=== PATIENT | female | born 1960 | race African-American/Black ===

== ENCOUNTER 2017-01-23 06:00 | Inpatient (IN) | payer OTHER ==
--- NOTE | ~2017-01-23 | HP ---
Unit #: [id number] #: [id number] Patient: JONN ROJAS [id number] [address] [facility]. [place], [place] [address] [id number] Maximo MR#: [id number] NAME: JONN ROJAS ROOM: 320 Age: 56 Sex: F Admission Date: 01/23/2017 : 1960 Attending Physician: Seble Gomez M.D. HISTORY AND PHYSICAL CHIEF COMPLAINT Progressive confusion. HISTORY OF PRESENT ILLNESS This 56-year-old female with seizure disorder from transferred from [facility] emergency department for progressive confusion. The patient, herself, although conversing, is confused. She is unsure why she was sent to this hospital and denies any current symptoms. I called her who tells me the patient has been experiencing progressive confusion over the past one to two months. She does not believe that she lives in her own home, does not believe that she is to her . She wanders up and down the road. She was recently admitted to [facility] for confusion but I have no old records. Her took her back yesterday and she was diagnosed with a UTI and confusion. She was initially given Cipro. Head CT only revealed minimal small vessel ischemic disease and generalized atrophy. However, when she went home with her she again developed increasing confusion. She was, therefore, sent back to [facility] emergency department and I was called to accept the patient in transfer. The patient has history of alcohol use but really has not used alcohol recently according to both the patient and her . The patient does have a history of seizures. The last seizure was perhaps five years ago and the patient is maintained on Keppra. The patient herself denies fever, sweats, chills, urinary symptoms or any other symptoms. PAST MEDICAL HISTORY 1. Seizure disorder. 2. Possible hysterectomy. SOCIAL HISTORY The patient lives with her . She initially told me that she lives with a friend and then changed this to her ex- when I brought up they both had the same last name. Last drink was perhaps a week ago. The patient does not smoke. The patient does not use drugs. FAMILY HISTORY Negative for neurologic disease. ALLERGIES None. HOME MEDICATIONS I have a medication sheet which lists: Unit #: [id number] #: [id number] Patient: JONN ROJAS 1. Thiamine 100 mg daily. 2. Cyproheptadine 4 mg daily. 3. Bentyl 10 mg t.i.d. 4. Estradiol 1 mg daily. 5. Folic acid 1 mg daily. 6. Keppra possibly 1,000 versus 1,500 mg once or twice a day, I am unsure. 7. Neurontin 100 mg in the morning and 200 mg in the evening. 8. MiraLax as needed. REVIEW OF SYSTEMS Difficult to obtain as the patient is confused. PHYSICAL EXAMINATION GENERAL APPEARANCE: A pleasantly confused, 56-yea-rold, mildly obese female who currently is in no acute distress. VITAL SIGNS: Temperature 95. Respiration 16. O2 saturation 100%. Temperature 98.1. Blood pressure 137/85. HEENT: Eyes: PERRLA. Extraocular muscles are intact. Pharynx is benign. NECK: Supple without adenopathy, thyromegaly, or carotid bruits. CHEST: Clear. CARDIAC: Normal S1, S2 without S3, S4 or murmur. ABDOMEN: Bowel sounds are present. Abdomen is somewhat distended but nontender. No definite hepatosplenomegaly or masses. EXTREMITIES: Mild edema. Pedal pulses are present. NEUROLOGIC: The patient is awake, alert. She is oriented only to person. Her cranial nerves are intact. She has equal strength throughout. Normal [id number]. Negative pronator drift. She is able to ambulate with minimal assistance. DIAGNOSTIC STUDIES LABORATORY: Hematocrit 39, WBC count 10.2, normal platelet count and MCV. SMA-12: Potassium 3.2. Ammonia normal. Alcohol level negligible. Urinalysis: Trace blood, 2+ bacteria, 10 to 20 white cells. IMAGING: Head CT: No acute disease. Minimal small vessel ischemic disease, generalized atrophy. ASSESSMENT 1. Progressive confusion, memory issues for the past one to two months, recently admitted to [facility] for confusion. 2. Questionable UTI. 3. Seizure disorder. PLAN 1. One dose of antibiotics pending urine. I will ask for repeat UA, urine C and S. 2. Urine tox screen. 3. Obtain B12, thyroid function tests, MRI of the brain. 4. Request old records from [facility]. 5. Verify home medicines. 6. Possible Neurology consultation depending on above. Dictated by Seble Gomez M.D. AML/bd Unit #: [id number] #: [id number] Patient: JONN ROJAS TD: 01/23/2017 06:01 JOB #: [id number] HISTORY AND PHYSICAL Page 1 of 1 X Seble Gomez MD X HISTORY AND PHYSICAL
--- NOTE | ~2017-01-23 | EKG ---
PATIENT: JONN ROJAS UNIT #: [id number] Ventricular Rate: 85 BPM Atrial Rate: 85 BPM P-R Interval: 138 ms QRS Duration: 74 ms Q-T Interval: 370 ms QTC Calculation(Bezet): 440 ms P [place]: 54 degrees Calculated R [place]: -3 degrees Calculated T [place]: 12 degrees Diagnosis Line: Normal sinus rhythm Diagnosis Line: Low voltage QRS Diagnosis Line: Borderline ECG Diagnosis Line: No previous ECGs available Diagnosis Line: Confirmed by IDA ADEN MD ([id number]) on Diagnosis Line: 01/24/2017 3:39:14 PM INTERPRETING MD: KADIE
--- NOTE | ~2017-01-23 | DS ---
Unit #: [id number] #: [id number] Patient: JONN ROJAS [id number] [address] [address] [id number] I MR#: [id number] NAME: JONN ROJAS ROOM: 320 Age: 56 Sex: F Admission Date: 01/23/2017 : 1960 Discharge Date: 01/23/2017 Attending Physician: Pilar Glover M.D. Primary Care Physician: Clive Brooks M.D. DISCHARGE SUMMARY DISCHARGE DIAGNOSES 1. Korsakoff syndrome. 2. Nonanion gap metabolic acidosis. 3. Mild hypokalemia. 4. Seizure disorder. 5. Alcohol abuse. CONSULTANTS Dr. Stevens, Neurology. PROCEDURES None. CLINICAL HISTORY AND HOSPITAL COURSE Ms. Rojas is a 56-year-old -Citizen Of [place] female, who is transferred from [facility] due to progressive memory loss. She was subsequently transferred here for further evaluation. Patient remains confused at her baseline according to her . Ammonia level is only mildly elevated at 45, B12 is normal at 716, TSH was also normal. CMP/CBC are also normal. Asked Dr. Stevens to evaluate the patient for further evaluation. After further discussion with the patient's , the patient is being seen by Dr. Parker, in [place] regarding her seizures and workup was reportedly Korsakoff syndrome. I think she can safely be discharged home on follow-up with Dr. Parker as previously scheduled. I did discuss MRI of the brain with Dr. Stevens, but he does not feel that it is necessary at this time, and can be done as an outpatient. DISCHARGE CONDITION Stable. DISCHARGE STATUS Discharged to home. DISCHARGE MEDICATIONS 1. Neurontin 100 mg in the morning and 200 at bedtime. 2. Keppra 1000 mg in the morning and 1500 mg at bedtime. 3. Trazodone 100 mg each evening. 4. Periactin 4 mg daily. 5. Dicyclomine 10 mg t.i.d. 6. MiraLAX 17 g p.o. daily, p.r.n. for constipation. 7. Esterase 1 mg daily. 8. A daily multivitamin. Unit #: [id number] #: [id number] Patient: JONN ROJAS 9. Folic acid 1 mg daily. DISCHARGE INSTRUCTIONS The patient was instructed to follow a healthy heart diet. She is to refrain from any further alcohol use. FOLLOW UP The patient will follow up with Dr. Parker in [place], as previously scheduled. Time spent on discharge, 33 minutes. Dictated by... Ninfa Fernandez/alba TD: 01/23/2017 15:05 JOB #: [id number] DISCHARGE SUMMARY Page 1 of 1 X Pilar Glover MD X DISCHARGE SUMMARY
--- NOTE | ~2017-01-23 | CO ---
Unit #: [id number] #: [id number] Patient: JONN ROJAS [id number] [facility] [address] [place], [place] [address] [id number] Maximo MR#: [id number] NAME: JONN ROJAS ROOM: 320 Age: 56 Sex: F Admission Date: 01/23/2017 : 1960 Attending Physician: Pilar Glover M.D. Requesting Physician: Pilar Glover M.D. Consultation Date: 01/23/2017 CONSULTATION REPORT REASON FOR THE CONSULTATION Progressive confusion. PATIENT IDENTIFICATION This is a 56-year-old, right-handed, -English female who is evaluated in room 320 at [facility]. SOURCE OF INFORMATION The patient, the medical records, and my discussion with the patient's . PROBLEM LIST 1. History of seizure disorder and she sees Dr. Parker in [place]. 2. Also, a question about Korsakoff syndrome. 3. The patient has prior hysterectomy. HISTORY OF PRESENT ILLNESS This is a 56-year-old female who actually presented to [facility] for progressive confusion. It looks like she was diagnosed there with UTI and she was treated. The patient is doing fine right now and wants to go home. She was transferred here because of progressive worsening, but the family now realizes, as she is not much confused, that she sees Dr. Parker in [place] and has seen another gentleman for Korsakoff syndrome and the says that she is back to her baseline, but, obviously, not back to normal. She was diagnosed with UTI and treated and she wants to go home. There is nothing else to change. Since full workup has been done and they have recently seen them in [place], there is no point in initiating anything brand new and that is what I told the family and they agree. No falls or injuries. No migraines. She denies any recent seizures. It looks like her Keppra was recently increased. Nothing to suggest a [employer]/FIREMAN infection. Unit #: [id number] #: [id number] Patient: JONN ROJAS Nothing suggesting stroke or focal findings. Her head CT was okay, though we do not have a MRI. PAST MEDICAL HISTORY As discussed above. PAST SURGICAL HISTORY As discussed above. ALLERGIES None. FAMILY HISTORY Negative for neurologic disease. SOCIAL HISTORY Patient lives with her . She apparently is drinking. Last drink was about a week ago, but I cannot corroborate that. Does not smoke. Does not use drugs. REVIEW OF SYSTEMS CONSTITUTIONAL: Mostly, the confusional state, as discussed. No weight issues. No fever, chills, or rigors. HEENT: No headaches. No double vision, earache, runny nose, or sore throat. CARDIOVASCULAR: No chest pain, clubbing, cyanosis, orthopnea, or palpitations. PULMONARY: No shortness of air, cough, or expectoration. GASTROINTESTINAL: No nausea, vomiting, diarrhea, or constipation. GENITOURINARY: No genitourinary symptoms. MUSCULOSKELETAL: No extremity problems. No back problem. PSYCHIATRY: Shows possible cognitive changes and Korsakoff syndrome. NEUROLOGIC: Issue with seizure disorder and possible cognitive changes. HEMATOLOGIC, DERMATOLOGIC, AND ENDOCRINE: No other hematologic, dermatologic, or endocrine problems. PHYSICAL EXAMINATION VITAL SIGNS: Temperature 97.8, pulse 113, respirations are 20, and blood pressure 149/80. Pain was 5/10. O2 sats 98-100%. Weight of 157 pounds and BMI was 27. NEUROLOGIC: The patient is awake. She is alert. She knows she is in the hospital. She knows this is January, but she is struggling with the exact date and the day. She can name. She can follow commands. No right-left confusion. No finger agnosia. CRANIAL NERVES: Demonstrates response to threats in all jane. Eye movements are conjugate. I did not see any ptosis. I did not see any nystagmus. Extraocular movements are intact. Sensation on the face and scalp are normal. Strength of muscles of facial expression normal. Hearing seems to be intact. Tongue was midline. Uvula is midline. Palate elevation is normal. Head turning and shoulder shrugs are unremarkable. MOTOR: Demonstrated normal bulk and tone. Strength was essentially 5-/5 all over. SENSORY: Intact for soft touch and pain sensation. No extinction was seen. Romberg was not evaluated. GAIT: Deferred. REFLEXES: I could not get any reflexes. Toes are equivocal. COORDINATION: Slow czfxta-ku-aenn-to-finger. Unit #: [id number] #: [id number] Patient: JONN ROJAS DIAGNOSTIC STUDIES LABORATORY: Labs reviewed. IMAGING: None available. IMPRESSION Mental status changes in a patient with known cognitive changes, seizure disorder, and likely UTI exacerbating the present condition. I had a very detailed discussion with the patient and her . They do not want to do anything different. They want to go home. They already have established neurologist and I agree with them that there is no point in reinitiating all the workup and they can follow up with Dr. Parker, whom they like very much. There is nothing there was a new seizure. There is nothing suggesting status. There is nothing suggesting new stroke or focal findings. Beyond that, I will leave everything to the primary team being a hospitalist here only. Discussed with the team and she may be discharged to follow up with established team members and call me for any other questions, issues, or concerns should there be any. Dictated by... Ninfa Magaña/lisa TD: 01/23/2017 13:52 JOB #: [id number] CONSULTATION REPORT Page 1 of 1 X Luis Miguel Stevens MD X CONSULTATION REPORT
--- NOTE | ~2017-01-23 | DS ---
Unit #: [id number] #: [id number] Patient: JONN ROJAS [id number] [address] [place], [place] [address] [id number] I MR#: [id number] NAME: JONN ROJAS ROOM: 320 Age: 56 Sex: F Admission Date: 01/23/2017 : 1960 Discharge Date: 01/23/2017 Attending Physician: Pilar Glover M.D. DISCHARGE SUMMARY ADDENDUM I discussed the patient's discharge with her who is agreeable. His concern is that patient is increasingly wandering at home. However, he feels that she is safe to go home. I have discontinued her trazodone, placed her on Risperdal 0.5 mg, one to two tablets p.o. q. h.s. 60 tablets written. Dictated by... Pilar Glover M.D. KENDRICK/sahil TD: 01/24/2017 08:44 JOB #: [id number] DISCHARGE SUMMARY Page 1 of 1 X Pilar Glover MD X DISCHARGE SUMMARY
[2017-01-23] MEDS ORDERED: TRAZODONE HCL100 MG PO (06:24)
[2017-01-23] MEDS ORDERED: PERIACTIN4 M1 PO (06:25)
[2017-01-23] MEDS ORDERED: DICYCLOMINE HCL10 MG PO (06:26)
[2017-01-23] MEDS ORDERED: FOLIC ACID1 MG PO (06:27)
[2017-01-23] MEDS ORDERED: ESTRACE PO (06:29)
[2017-01-23] MEDS ORDERED: NEURONTIN100 MG PO ×2 (06:30→06:32)
[2017-01-23] MEDS ORDERED: KEPPRA1000 MG PO (06:33)
[2017-01-23] MEDS ORDERED: KEPPRA500 MG PO (06:35)
[2017-01-23] MEDS ORDERED: MIRALAX17 GM PO (06:36)
[2017-01-23] MEDS ORDERED: M.V.I. ADULT10 ML PO (06:37)
[2017-01-23 07:58] LABS: HEMATOCRIT 37.5 % (35.0-45.0); HEMOGLOBIN 12.3 gm/dL (12.0-16.0); MEAN CELL VOLUME 92.4 FL (83-96); MEAN CORPUSCULAR HEMOGLOBIN 30.2 PG (28-34); MEAN CORPUSCULAR HGB CONC 32.7 g/dL (30-36); MEAN PLATELET VOLUME 9.3 FL (6.5-11.5); RED BLOOD COUNT 4.05 X10e (3.90-5.30); RED CELL DISTRIBUTION WIDTH 14.6 % (11.0-15.5); WHITE BLOOD COUNT 8.7 X10e3 (4.0-10.5)
[2017-01-23 08:13] LABS: INR 1.2; PARTIAL THROMBOPLASTIN TIME 27.3 SECONDS (23.5-31.3); PROTHROMBIN TIME (PATIENT) 13.1 SECONDS (9.6-11.5)
[2017-01-23 08:39] LABS: ALBUMIN SERUM 3.5 g/dL (3.5-5.0); BILIRUBIN,TOTAL 0.7 mg/dL (0.2-2.0); CALCIUM SERUM 8.8 mg/dL (8.4-10.2); CREATININE SERUM 0.6 mg/dL (0.6-1.4); GLOM FILT RATE Estimated 116.5 mL/min (>60); POTASSIUM 3.4 mmol/L (3.5-5.1); PROTEIN TOTAL SERUM 6.4 g/dL (6.0-8.3)
[2017-01-23 09:02] LABS: THYROID STIMULATING HORMONE 3.84 uIU/ml (0.34-5.60)
[2017-01-23 09:04] LABS: %MB 1.4 % (0.0-4.0); MB 2.1 ng/ml
[2017-01-23 09:08] LABS: FREE THYROXIN (T4) 0.97 ng/dL (0.58-1.64)
[2017-01-23] MEDS ORDERED: RISPERDAL0.5 M1 PO (14:26)
== END 2017-01-23 14:51 | disposition home or self-care (01) | DRG 884 ==
LOC: C3A PCU 06:00
PROVIDERS: Internal Medicine
DX: F04 Amnestic disorder due to known physiological condition (principal); E87.2 Acidosis; G40.909 Epilepsy, unspecified, not intractable, without status epilepticus; E87.6 Hypokalemia; F10.10 Alcohol abuse, uncomplicated
CPT/HCPCS: 80053; 82140; 82550; 82553; 82607; 84439; 84443; 84484; 85027; 85610; 85730; 86592; 93005; J0696